=== PATIENT | female | born 1985 | race Caucasian/White ===

== ENCOUNTER 2016-09-26 05:39 | Inpatient (IN) | payer OTHER ==
[2016-09-26 10:20] LABS: RED BLOOD COUNT 4.17 M/UL (4.00-5.10); WHITE BLOOD COUNT 12.5 K/UL (4.5-11.0)
[2016-09-27 06:39] LABS: HEMOGLOBIN 10.6 gm/dl (12.3-15.3)
== END 2016-09-28 14:40 | disposition home or self-care (01) | DRG 775 ==
LOC: OB 05:39
PROVIDERS: ADMIT Obstetrics & Gynecology
PROC: 0HQ9XZZ Repair Perineum Skin, External Approach (ICD-10-PCS; principal; 2016-09-26)
PROC: 10E0XZZ Delivery of Products of Conception, External Approach (ICD-10-PCS; 2016-09-26)
PROC: 0UQJXZZ Repair Clitoris, External Approach (ICD-10-PCS; 2016-09-26)
PROC: 3E033VJ Introduction of Other Hormone into Peripheral Vein, Percutaneous Approach (ICD-10-PCS; 2016-09-26)
PROC: 10907ZC Drainage of Amniotic Fluid, Therapeutic from Products of Conception, Via Natural or Artificial Opening (ICD-10-PCS; 2016-09-26)
PROC: 3E0R3CZ (ICD-10-PCS; 2016-09-26)
PROC: 3E0234Z Introduction of Serum, Toxoid and Vaccine into Muscle, Percutaneous Approach (ICD-10-PCS; 2016-09-27)
DX: O36.63X0 Maternal care for excessive fetal growth, third trimester, not applicable or unspecified (principal); O70.0 First degree perineal laceration during delivery; Z3A.39 39 weeks gestation of pregnancy; Z37.0 Single live birth; O99.613 Diseases of the digestive system complicating pregnancy, third trimester; R12 Heartburn; O99.213 Obesity complicating pregnancy, third trimester; E66.9 Obesity, unspecified; Z23 Encounter for immunization; Z85.828 Personal history of other malignant neoplasm of skin; Z87.891 Personal history of nicotine dependence; Z79.899 Other long term (current) drug therapy; Z98.890 Other specified postprocedural states; Z82.79 Family history of other congenital malformations, deformations and chromosomal abnormalities; Z82.49 Family history of ischemic heart disease and other diseases of the circulatory system
CPT/HCPCS: 36415; 51702; 81001; 82800; 85014; 85018; 85025; 90715; J2300; J2590; J2795; J3010; J7120

== ENCOUNTER → 2021-08-20 | Outpatient (CLI) | payer OTHER ==
[~2021-08-20] MED LIST: CLARITIN10 M2 PO; IBUPROFEN600 MG PO; NORCO 5-325 TA1 EACH PO
== END ==
LOC: EXRD 11:21
DX: R59.1 Generalized enlarged lymph nodes (principal)
CPT/HCPCS: 76536

== ENCOUNTER → 2021-10-10 | Outpatient (CLI) | payer OTHER | LOC: EXRD 13:00 | DX: R59.1 Generalized enlarged lymph nodes (principal) | CPT/HCPCS: 76536 ==

== ENCOUNTER → 2021-11-05 | Outpatient (CLI) | payer OTHER | LOC: KOH-I 16:04 | DX: M54.2 Cervicalgia (principal) | CPT/HCPCS: 72040 ==

== ENCOUNTER → 2021-11-22 | Outpatient (CLI) | payer OTHER | LOC: RAD 17:13 | DX: M54.50 Low back pain, unspecified (principal) | CPT/HCPCS: 72100 ==